=== PATIENT | female | born 1945 | race Caucasian/White ===

== ENCOUNTER → 2016-11-12 | Outpatient (CLI) | payer MEDICARE, BC ==
[~2016-11-12] MED LIST: ASPIR 8181 M1 PO; BUSPAR10 MG PO; DILTIAZEM 24HR300 MG PO; DIOVAN HCT 31 TABLE1 PO; DURAGESIC50 MCG TD; LASIX20 MG PO; METOPROLOL TAR100 MG PO; OXYCODONE HCL15 MG PO; ZOLOFT50 MG PO
== END | disposition home or self-care (01) ==
LOC: CDC 13:56
DX: R94.31 Abnormal electrocardiogram [ECG] [EKG] (principal)
CPT/HCPCS: 93000

== ENCOUNTER 2017-11-17 12:29 | Day surgery (SDC) | payer OTHER, BC ==
[~2017-11-17] VITALS: Ht 149.9 cm; Wt 97.1 kg
[~2017-11-17 12:29] MED LIST changes: +CILOSTAZOL100 MG PO; +NEURONTIN300 MG PO; +OXYCONTIN30 MG PO
== END 2017-11-17 14:45 | disposition home or self-care (01) ==
LOC: PAIN 12:29 → SDC 13:00 → PAIN 14:45
PROC: 3E0U33Z Introduction of Anti-inflammatory into Joints, Percutaneous Approach (ICD-10-PCS; principal; 2017-11-17)
PROC: 3E0U3BZ Introduction of Anesthetic Agent into Joints, Percutaneous Approach (ICD-10-PCS; principal; 2017-11-17)
DX: M46.1 Sacroiliitis, not elsewhere classified (principal); M54.16 Radiculopathy, lumbar region; Z79.891 Long term (current) use of opiate analgesic; G62.9 Polyneuropathy, unspecified; Z79.82 Long term (current) use of aspirin; Z88.1 Allergy status to other antibiotic agents; Z88.8 Allergy status to other drugs, medicaments and biological substances
CPT/HCPCS: J1030; S0020